=== PATIENT | female | born 1935 | race Caucasian/White ===

== ENCOUNTER 2021-03-27 13:50 | Inpatient (IN) | payer MEDICARE ==
[~2021-03-27] VITALS: Ht 160 cm; Wt 94.0 kg
[~2021-03-27 13:50] MED LIST: ALL300T PO; ATEN-60 PO; BENA20TA14 PO; FURO40TA4 PO; LEVO75TA6 PO; MELO1TAB73 PO; METF500S PO; PIOG1TAB37 PO; POTA-167 PO
[2021-03-27 15:21] LABS: Basophils # (auto) 0.1 10 ^3/uL (0-0.2); Basophils % (auto) 1.1 % (0.0-2.0); Eosinophils # (auto) 0 10 ^3/uL (0-0.8); Hematocrit 29.9 % (36.0-46.0); Hemoglobin 10.2 g/dL (12.2-16.2); Lymphocytes # (auto) 0.9 10 ^3/uL (0.4-5.4); Lymphocytes % (auto) 19.7 % (10.0-50.0); Mean Corpuscular Hemoglobin 31.6 pg (28.0-32.0); Mean Corpuscular Hgb Conc. 34.2 g/dL (32.0-36.0); Mean Corpuscular Volume 92.4 fL (80.0-100.0); Monocytes # (auto) 0.5 10 ^3/uL (0-1.3); Monocytes % (auto) 9.9 % (0.0-12.0); Neutrophils # (auto) 3.3 10 ^3/uL (1.6-8.6); Neutrophils % (auto) 68.3 % (37.0-80.0); Nucleated Red Blood Cells % 0.5 %; Red Blood Cells 3.23 10^6/uL (4.0-5.20); Red Cell Distribution Width 17.4 % (11.8-14.3); White Blood Cell 4.8 10^3/uL (4.4-10.8)
[2021-03-27 15:25] LABS: Albumin 3.7 g/dL (3.4-5.0); BUN/Creatinine Ratio 17.3; Calcium 9.3 mg/dL (8.5-10.1); Potassium 3.7 mmol/L (3.5-5.1)
[2021-03-27 15:28] LABS: Bilirubin, Total 0.6 mg/dL (0.2-1.0); Total Protein 6.9 g/dL (6.4-8.2)
[2021-03-27] MEDS ORDERED: HALOPERIDOL LACTATE 5 MG/ML INJ VIAL IM ONE ×2 (16:15→21:15)
[2021-03-27] MEDS ORDERED: LORazepam 2MG/ML-1ML VIAL IV ONE (16:15)
[2021-03-27] MEDS ORDERED: cefTRIAXone 1GM/50ML D5W 50 ML IV ONE (17:45)
[2021-03-27] MEDS ORDERED: SODIUM CHLORIDE 0.9% 1,000 ML IV ONE (17:45)
[2021-03-27 18:17] LABS: Urine Bacteria MOD /hpf (None Seen); Urine Blood Negative /uL (Negative); Urine Mucus FEW (None Seen); Urine Specific Gravity 1.016 (1.001-1.035); Urine WBC 158 /hpf (0 - 5)
[2021-03-27] MEDS ORDERED: diphenhdrAMINE HCL 50 MG/1 ML VL IV ONE (21:15)
[2021-03-27] MEDS ORDERED: DEXTROSE (50%) 50ML SYRG IV PRN (22:45)
[2021-03-27] MEDS ORDERED: ONDANSETRON HCL 4 MG/2 ML VIAL IV PRN (22:45)
[2021-03-27] MEDS ORDERED: TEMAZEPAM 15 MG CAP PO PRN (22:45)
[2021-03-28] MEDS ORDERED: FUROSEMIDE 40 MG TAB PO SCH (06:00)
[2021-03-28] MEDS: ACCU-CHEK COMFORT CURVE STRIP VI SCH ×4 (06:31→22:27)
[2021-03-28] MEDS: InsuLIN REG 1unit/0.01ml Soln (100units/ml) SC SCH ×4 (06:35→22:00)
[2021-03-28 06:49] LABS: Basophils # (auto) 0 10 ^3/uL (0-0.2); Basophils % (auto) 0.9 % (0.0-2.0); Eosinophils # (auto) 0.1 10 ^3/uL (0-0.8); Eosinophils % (auto) 1.4 % (0.0-7.0); Hematocrit 34.4 % (36.0-46.0); Hemoglobin 11.3 g/dL (12.2-16.2); Lymphocytes # (auto) 0.5 10 ^3/uL (0.4-5.4); Lymphocytes % (auto) 8.9 % (10.0-50.0); Mean Corpuscular Hemoglobin 29.9 pg (28.0-32.0); Mean Corpuscular Hgb Conc. 32.8 g/dL (32.0-36.0); Mean Corpuscular Volume 90.9 fL (80.0-100.0); Monocytes # (auto) 0.4 10 ^3/uL (0-1.3); Monocytes % (auto) 7.8 % (0.0-12.0); Neutrophils # (auto) 4.6 10 ^3/uL (1.6-8.6); Nucleated Red Blood Cells % 0.2 %; Red Blood Cells 3.79 10^6/uL (4.0-5.20); White Blood Cell 5.6 10^3/uL (4.4-10.8)
[2021-03-28] MEDS: LEVOTHYROXINE SODIUM 25 MCG TAB PO SCH (07:00)
[2021-03-28 07:08] LABS: BUN/Creatinine Ratio 15.9
[2021-03-28 07:11] LABS: Bilirubin, Total 0.8 mg/dL (0.2-1.0); Total Protein 6.3 g/dL (6.4-8.2)
[2021-03-28 07:51] LABS: Potassium 2.9 mmol/L (3.5-5.1)
[2021-03-28] MEDS: cefTRIAXone 1GM/50ML D5W 50 ML IV SCH ×2 (09:00→09:35)
[2021-03-28] MEDS ORDERED: PANTOPRAZOLE 40 MG TAB PO SCH (10:00)
[2021-03-28] MEDS: ATENOLOL 50 MG TAB PO SCH (10:41)
[2021-03-28] MEDS: BENAZEPRIL HCL 10 MG TAB PO SCH (10:41)
[2021-03-28] MEDS ORDERED: POTASSIUM EFFERVESENT TAB 25 MEQ PO ONE (12:00)
[2021-03-28 12:24] LABS: Magnesium 1.9 mg/dL (1.6-2.6)
[2021-03-28] MEDS: POTASSIUM CHL 10MEQ/50ML 50 ML IV SCH ×2 (13:07→14:01)
[2021-03-28 13:43] LABS: INR 1.05 (0.9-1.15); Partial Thromboplastin Time 26.6 sec (23.6-33.0)
[2021-03-28] MEDS ORDERED: POTASSIUM PHOSPHATE 22 MEQ in SODIUM CHL 0.9% 100 ML IV ONE (14:30)
[2021-03-28] MEDS: MAGNESIUM SULFATE 1GM/100ML 100 ML IV SCH ×2 (15:00→16:34)
[2021-03-28] MEDS: FUROSEMIDE 20 MG/2 ML VIAL IV SCH (18:15)
[2021-03-29] MEDS: FUROSEMIDE 20 MG/2 ML VIAL IV SCH (06:21)
[2021-03-29] MEDS: LEVOTHYROXINE SODIUM 25 MCG TAB PO SCH (06:31)
[2021-03-29] MEDS: InsuLIN REG 1unit/0.01ml Soln (100units/ml) SC SCH ×4 (07:34→21:29)
[2021-03-29] MEDS: ACCU-CHEK COMFORT CURVE STRIP VI SCH ×4 (07:34→21:29)
[2021-03-29] MEDS: BENAZEPRIL HCL 10 MG TAB PO SCH (10:00)
[2021-03-29] MEDS: ATENOLOL 50 MG TAB PO SCH (10:00)
[2021-03-29 10:40] LABS: BUN/Creatinine Ratio 16.2; Calcium 8.7 mg/dL (8.5-10.1); Magnesium 2.9 mg/dL (1.6-2.6); Potassium 3.4 mmol/L (3.5-5.1)
[2021-03-29 13:00] VITALS: BP 140/74
[2021-03-29 13:13] VITALS: BP 140/74
[2021-03-29 16:00] VITALS: BP 180/76
[2021-03-29] MEDS ORDERED: POTASSIUM CHL 10 Meq TABLET PO ONE (16:15)
[2021-03-29] MEDS ORDERED: hydrALAZINE HCL 20 MG/ML VL IV ONE (18:45)
[2021-03-29] MEDS ORDERED: hydrALAZINE HCL 20 MG/ML VL IV PRN (18:45)
[2021-03-29 21:29] VITALS: BP 135/61
[2021-03-30 05:13] VITALS: BP 168/76
[2021-03-30 05:42] LABS: BUN/Creatinine Ratio 15.7; Calcium 8.3 mg/dL (8.5-10.1); Magnesium 2.8 mg/dL (1.6-2.6); Potassium 3.5 mmol/L (3.5-5.1)
[2021-03-30] MEDS: LEVOTHYROXINE SODIUM 25 MCG TAB PO SCH (06:06)
[2021-03-30] MEDS: InsuLIN REG 1unit/0.01ml Soln (100units/ml) SC SCH ×4 (06:13→21:57)
[2021-03-30] MEDS: ACCU-CHEK COMFORT CURVE STRIP VI SCH ×4 (06:13→21:57)
[2021-03-30 06:38] VITALS: BP 145/70
[2021-03-30 08:00] VITALS: BP 135/73
[2021-03-30] MEDS: cefTRIAXone 1GM/50ML D5W 50 ML IV SCH (10:13)
[2021-03-30] MEDS: FUROSEMIDE 20 MG/2 ML VIAL IV SCH (10:15)
[2021-03-30] MEDS: ATENOLOL 50 MG TAB PO SCH (10:16)
[2021-03-30] MEDS: BENAZEPRIL HCL 10 MG TAB PO SCH (10:19)
[2021-03-30] MEDS ORDERED: POTASSIUM CHL 20 Meq TABLET PO ONE (12:45)
[2021-03-30 13:00] VITALS: BP 139/58
[2021-03-30 16:00] VITALS: BP 123/60
[2021-03-30 22:00] VITALS: BP 141/63
[2021-03-31] VITALS (7 sets, daily range): BP systolic 135–156; BP diastolic 59–77
[2021-03-31] MEDS: LEVOTHYROXINE SODIUM 25 MCG TAB PO SCH (06:29)
[2021-03-31] MEDS: InsuLIN REG 1unit/0.01ml Soln (100units/ml) SC SCH ×3 (06:29→17:00)
[2021-03-31] MEDS: ACCU-CHEK COMFORT CURVE STRIP VI SCH ×3 (06:30→17:00)
[2021-03-31] MEDS: cefTRIAXone 1GM/50ML D5W 50 ML IV SCH (09:00)
[2021-03-31] MEDS: BENAZEPRIL HCL 10 MG TAB PO SCH (10:00)
[2021-03-31] MEDS: ATENOLOL 50 MG TAB PO SCH (10:00)
[2021-03-31] MEDS: FUROSEMIDE 20 MG/2 ML VIAL IV SCH (10:00)
== END 2021-03-31 18:39 | disposition home health service (06) | DRG 291 ==
LOC: ER 13:50 → EDBD 13:50 → OVERFLOW 22:44 → WEST WING 03-29 12:37
PROVIDERS: ADMIT Nurse Practitioner; ATTEND Internal Medicine
DX: I11.0 Hypertensive heart disease with heart failure (principal); G93.41 Metabolic encephalopathy; I50.43 Acute on chronic combined systolic (congestive) and diastolic (congestive) heart failure; J96.20 Acute and chronic respiratory failure, unspecified whether with hypoxia or hypercapnia; N39.0 Urinary tract infection, site not specified; I42.9 Cardiomyopathy, unspecified; E11.9 Type 2 diabetes mellitus without complications; E66.01 Morbid (severe) obesity due to excess calories; E03.9 Hypothyroidism, unspecified; I44.7 Left bundle-branch block, unspecified; J44.9 Chronic obstructive pulmonary disease, unspecified; Z66 Do not resuscitate; Z20.822 Contact with and (suspected) exposure to COVID-19; Z68.36 Body mass index [BMI] 36.0-36.9, adult; Z88.1 Allergy status to other antibiotic agents; Z88.2 Allergy status to sulfonamides; Z91.018 Allergy to other foods; Z91.011 Allergy to milk products; Z86.73 Personal history of transient ischemic attack (TIA), and cerebral infarction without residual deficits; Z90.710 Acquired absence of both cervix and uterus
CPT/HCPCS: 36415; 70450; 71045; 80048; 80053; 81001; 82962; 83036; 83605; 83735; 83880; 84100; 84439; 84443; 84484; 85025; 85610; 85730; 87040; 87086; 87088; 87186; 87426; 93306; 96365; 96375; 96376; G0378; J0696